=== PATIENT | male | born 1940 | race American Indian/Alaskan Native ===

== ENCOUNTER 2019-06-23 09:06 | Inpatient (IN) | payer MEDICARE ==
[2019-06-23] MEDS ORDERED: SOLU-Medrol IV ONE (10:06)
[2019-06-23] MEDS ORDERED: ATROVENT IH ONE (10:06)
[2019-06-23] MEDS ORDERED: PROVENTIL IH ONE (10:06)
[2019-06-23 10:21] LABS: Basophils # (Auto) 0.1 K/mm3 (0.0-0.1); Basophils % (Auto) 0.8 % (0.0-1.8); Eosinophils # (Auto) 0.1 K/mm3 (0.0-0.4); Eosinophils % (Auto) 1.2 % (0.0-4.3); Hematocrit 34.3 % (35.5-45.6); Hemoglobin 11.1 gm/dl (11.8-15.2); Lymphocytes # (Auto) 2.4 K/mm3 (1.2-5.4); Lymphocytes % (Auto) 21.1 % (13.4-35.0); Mean Corpuscular HGB Conc 32 % (32-34); Mean Corpuscular Volume 84 fl (84-94); Monocytes % (Auto) 8.9 % (0.0-7.3); Platelet Count 563 K/mm3 (140-440); Red Cell Distribution Width 16.5 % (13.2-15.2)
--- NOTE | 2019-06-23 10:23 | XRay Report ---
CHEST 1 VIEW INDICATION: Dyspnea. COMPARISON: None FINDINGS: Support devices: None. Heart: Borderline to mild cardiomegaly. Lungs/Pleura: The lungs are hyperinflated. Mild pulmonary venous congestion is identified. No consoli dation, large pleural effusion or pneumothorax. Additional findings: None. IMPRESSION: Hyperinflated lungs. Mild cardiomegaly and pulmonary venous congestion. Signer Name: Monster Bardales Jr, MD Signed: 06/23/2019 10:18 AM Workstation Name: [id number]
[2019-06-23 10:26] LABS: BUN/Creatinine Ratio 10; Blood Urea Nitrogen 13 mg/dL (9-20); Calcium 8.7 mg/dL (8.4-10.2); Hemolysis Index 2
--- NOTE | 2019-06-23 11:32 | Emergency Department Report ---
ED Shortness of Breath HPI - General Chief Complaint: Dyspnea/Respdistress Stated Complaint: CHEST PAIN Time Seen by Provider: 06/23/19 09:37 Source: patient, EMS Mode of arrival: Stretcher Limitations: No Limitations - History of Present Illness Initial Comments: 79-year-old male with a past history of obesity, previous stroke, diabetes, GERD, atrial fibrillation on Coumadin, hypertension, and COPD presents to the hospital with complaints of shortness of breath since last night. Patient states he's been wheezing a lot. He complains of a chronic dry cough for years that isn't any worse. He's been compliant with his medications. He denies chest pain, fever, leg swelling, calf tenderness, history of PEs or DVTs. Patient states he is recently diagnosed with COPD. He used to be a heavy smoker (2 packs per day) but quit in the s. He states he has noticed a lot of wheezing the last several days he does not have any bronchodilators at home for treatment. States that his cough and his wheezing had improved with albuterol 2.5 mg mg provided in route. She was discharged from [facility] by 1.5 weeks ago for CHF exacerbation. They decided to come to this hospital today because his quencher operator is Dr. Whittington - Related Data Home Medications Medication Instructions Recorded Confirmed Last Taken Amlodipine Besylate [Norvasc] 10 mg PO DAILY 12/09/14 06/23/19 06/23/19 Metformin HCl [Glucophage] 1,000 mg PO BID 12/09/14 06/23/19 06/23/19 PARoxetine HCl [PARoxetine] 40 mg PO DAILY 12/09/14 06/23/19 06/23/19 Aspirin [Aspirin BABY CHEW TAB] 1 tab PO DAILY 12/21/14 06/23/19 06/23/19 Furosemide [Lasix TAB] 40 mg PO QDAY 06/23/19 06/23/19 06/23/19 Metoprolol [Lopressor] 100 mg PO QDAY 06/23/19 06/23/19 06/23/19 PARoxetine HCl [PARoxetine] 40 mg PO QDAY 06/23/19 06/23/19 06/23/19 Potassium Chloride [K-Dur] 10 meq PO QDAY 06/23/19 06/23/19 06/23/19 Tamsulosin [Flomax] 0.4 mg PO QDAY 06/23/19 06/23/19 06/23/19 Warfarin Sodium [Coumadin] 5 mg PO QDAY 06/23/19 06/23/19 06/23/19 raNITIdine HCl [Zantac] 300 mg PO QDAY 06/23/19 06/23/19 06/23/19 Allergies Allergy/AdvReac Type Severity Reaction Status Date / Time Iodinated Contrast- Oral and Allergy Unknown Verified 06/23/19 09:23 IV Dye lisinopril [From Zestril] Allergy Swelling Verified 06/23/19 09:22 ED Review of Systems ROS: Stated complaint: CHEST PAIN Other details as noted in HPI Comment: All other systems reviewed and negative ED Past Medical Hx - Past Medical History Previous Medical History?: Yes Hx Hypertension: Yes Hx CVA: Yes (Poss TIA) Hx Heart Attack/AMI: No Hx Congestive Heart Failure: Yes Hx Diabetes: Yes Hx GERD: Yes Hx Liver Disease: No Hx Renal Disease: No Hx Sickle Cell Disease: No Hx Seizures: No Hx Asthma: No Hx COPD: Yes Hx HIV: No Additional medical history: Mood swing, Nerves, Small CVA - Surgical History Past Surgical History?: Yes Additional Surgical History: fistula/hemorrhoid - Social History Smoking Status: Former Smoker Substance Use Type: None - Medications Home Medications: Home Medications Medication Instructions Recorded Confirmed Last Taken Type Amlodipine Besylate [Norvasc] 10 mg PO DAILY 12/09/14 06/23/19 06/23/19 History Metformin HCl [Glucophage] 1,000 mg PO BID 12/09/14 06/23/19 06/23/19 History PARoxetine HCl [PARoxetine] 40 mg PO DAILY 12/09/14 06/23/19 06/23/19 History Aspirin [Aspirin BABY CHEW TAB] 1 tab PO DAILY 12/21/14 06/23/19 06/23/19 History Furosemide [Lasix TAB] 40 mg PO QDAY 06/23/19 06/23/19 06/23/19 History Metoprolol [Lopressor] 100 mg PO QDAY 06/23/19 06/23/19 06/23/19 History PARoxetine HCl [PARoxetine] 40 mg PO QDAY 06/23/19 06/23/19 06/23/19 History Potassium Chloride [K-Dur] 10 meq PO QDAY 06/23/19 06/23/19 06/23/19 History Tamsulosin [Flomax] 0.4 mg PO QDAY 06/23/19 06/23/19 06/23/19 History Warfarin Sodium [Coumadin] 5 mg PO QDAY 06/23/19 06/23/19 06/23/19 History raNITIdine HCl [Zantac] 300 mg PO QDAY 06/23/19 06/23/19 06/23/19 History ED Physical Exam - General Limitations: No Limitations ED Course Vital Signs 06/23/19 06/23/19 06/23/19 09:14 09:15 09:20 Temperature 98.7 F Pulse Rate 66 Pulse Rate [ Anterior Bilateral Throughout] Respiratory 19 Rate Respiratory Rate [Anterior Bilateral Throughout] Blood Pressure 140/62 O2 Sat by Pulse 93 93 92 Oximetry 06/23/19 06/23/19 06/23/19 09:30 09:46 10:00 Temperature Pulse Rate 67 72 68 Pulse Rate [ Anterior Bilateral Throughout] Respiratory 13 23 14 Rate Respiratory Rate [Anterior Bilateral Throughout] Blood Pressure 136/68 136/68 140/62 O2 Sat by Pulse 97 97 100 Oximetry 06/23/19 06/23/19 06/23/19 10:16 10:30 10:42 Temperature Pulse Rate 69 68 Pulse Rate [ 71 Anterior Bilateral Throughout] Respiratory 19 26 H Rate Respiratory 20 Rate [Anterior Bilateral Throughout] Blood Pressure 140/62 134/68 O2 Sat by Pulse 98 96 Oximetry 06/23/19 06/23/19 06/23/19 10:46 11:00 11:15 Temperature Pulse Rate 71 65 77 Pulse Rate [ Anterior Bilateral Throughout] Respiratory 20 23 24 Rate Respiratory Rate [Anterior Bilateral Throughout] Blood Pressure 138/66 129/67 127/71 O2 Sat by Pulse 89 98 95 Oximetry 06/23/19 06/23/19 06/23/19 11:30 11:45 12:00 Temperature Pulse Rate 82 67 74 Pulse Rate [ Anterior Bilateral Throughout] Respiratory 17 22 19 Rate Respiratory Rate [Anterior Bilateral Throughout] Blood Pressure 113/59 120/59 124/59 O2 Sat by Pulse 94 96 96 Oximetry 06/23/19 06/23/19 06/23/19 12:16 12:30 12:45 Temperature Pulse Rate 77 79 74 Pulse Rate [ Anterior Bilateral Throughout] Respiratory 15 13 22 Rate Respiratory Rate [Anterior Bilateral Throughout] Blood Pressure 149/76 141/63 164/79 O2 Sat by Pulse 97 96 91 Oximetry ED Medical Decision Making - Lab Data Result diagrams: 06/23/19 09:43 06/23/19 09:43 Lab Results 06/23/19 06/23/19 06/23/19 Range/Units 09:43 09:43 09:43 WBC 11.2 H (4.5-11.0) K/mm3 RBC 4.10 (3.65-5.03) M/mm3 Hgb 11.1 L (11.8-15.2) gm/dl Hct 34.3 L (35.5-45.6) % MCV 84 (84-94) fl MCH 27 L (28-32) pg MCHC 32 (32-34) % RDW 16.5 H (13.2-15.2) % Plt Count 563 H (140-440) K/mm3 Lymph % (Auto) 21.1 (13.4-35.0) % [place] % (Auto) 8.9 H (0.0-7.3) % Eos % (Auto) 1.2 (0.0-4.3) % Baso % (Auto) 0.8 (0.0-1.8) % Lymph # 2.4 (1.2-5.4) K/mm3 [place] # 1.0 H (0.0-0.8) K/mm3 Eos # 0.1 (0.0-0.4) K/mm3 Baso # 0.1 (0.0-0.1) K/mm3 Seg Neutrophils % 68.0 (40.0-70.0) % Seg Neutrophils # 7.6 (1.8-7.7) K/mm3 PT (12.2-14.9) Sec. INR (0.87-1.13) APTT (24.2-36.6) Sec. Sodium 140 (137-145) mmol/L Potassium 4.2 (3.6-5.0) mmol/L Chloride 105.0 (98-107) mmol/L Carbon Dioxide 24 (22-30) mmol/L Anion Gap 15 mmol/L BUN 13 (9-20) mg/dL Creatinine 1.3 (0.8-1.5) mg/dL Estimated GFR > 60 ml/min BUN/Creatinine Ratio 10 % Glucose 112 H (75-100) mg/dL Calcium 8.7 (8.4-10.2) mg/dL Troponin T < 0.010 (0.00-0.029) ng/mL NT-Pro-B Natriuret Pep 1680 H (0-900) pg/mL 06/23/19 Range/Units 12:03 WBC (4.5-11.0) K/mm3 RBC (3.65-5.03) M/mm3 Hgb (11.8-15.2) gm/dl Hct (35.5-45.6) % MCV (84-94) fl MCH (28-32) pg MCHC (32-34) % RDW (13.2-15.2) % Plt Count (140-440) K/mm3 Lymph % (Auto) (13.4-35.0) % [place] % (Auto) (0.0-7.3) % Eos % (Auto) (0.0-4.3) % Baso % (Auto) (0.0-1.8) % Lymph # (1.2-5.4) K/mm3 [place] # (0.0-0.8) K/mm3 Eos # (0.0-0.4) K/mm3 Baso # (0.0-0.1) K/mm3 Seg Neutrophils % (40.0-70.0) % Seg Neutrophils # (1.8-7.7) K/mm3 PT 35.8 H (12.2-14.9) Sec. INR 3.66 H (0.87-1.13) APTT 56.4 H (24.2-36.6) Sec. Sodium (137-145) mmol/L Potassium (3.6-5.0) mmol/L Chloride (98-107) mmol/L Carbon Dioxide (22-30) mmol/L Anion Gap mmol/L BUN (9-20) mg/dL Creatinine (0.8-1.5) mg/dL Estimated GFR ml/min BUN/Creatinine Ratio % Glucose (75-100) mg/dL Calcium (8.4-10.2) mg/dL Troponin T (0.00-0.029) ng/mL NT-Pro-B Natriuret Pep (0-900) pg/mL - EKG Data -: EKG Interpreted by Me (afib rate 63) EKG shows normal: ST-T waves (no stemi) - EKG Data When compared to previous EKG there are: previous EKG unavailable - Radiology Data Radiology results: report reviewed CHEST 1 VIEW INDICATION: Dyspnea. COMPARISON: None FINDINGS: Support devices: None. Heart: Borderline to mild cardiomegaly. Lungs/Pleura: The lungs are hyperinflated. Mild pulmonary venous congestion is identified. No consolidation, large pleural effusion or pneumothorax. Additional findings: None. IMPRESSION: Hyperinflated lungs. Mild cardiomegaly and pulmonary venous congestion. - Medical Decision Making Patient having a combination of COPD and CHF exacerbation. She reported feeling better with nebs and steroids. I will he started eating he began to get more s hort of breath and O2 sat dropped to 88-89% on room air. I feel like the patient needs more time in treatment that can be providing any EGD. He will be admitted to the hospital for further treatment of COPD and CHF exacerbation. IV Lasix provided. - Differential Diagnosis copd, chf, pneumonia, pe, afib Critical Care Time: No Critical care attestation.: If time is entered above; I have spent that time in minutes in the direct care of this critically ill patient, excluding procedure time. ED Disposition Clinical Impression: COPD exacerbation, CHF exacerbation, Chronic atrial fibrillation, Supratherapeutic INR Disposition: OP ADMIT IP TO THIS HOSP Is pt being admited?: Yes Condition: Stable Time of Disposition: 13:50 (Dr Gordillo/hosp)
[2019-06-23 12:48] LABS: INR 3.66 (0.87-1.13)
[2019-06-23 12:49] LABS: Partial Thromboplastin Time 56.4 Sec. (24.2-36.6)
[2019-06-23] MEDS ORDERED: LASIX IV ONE ×2 (13:42→13:46)
--- NOTE | 2019-06-23 15:23 | History and Physical Report ---
History of Present Illness Chief complaint: I cant breathe History of present illness: 79 YO Male with HTN, CVA, CHF, DM, GERD, COPD, Atrial Fib on Therapeutic Anticoagulation, Obesity, Obesity Hypoventilation syndrome presents to ED for evaluation. Pt states that he has experienced shortness of breath over the past 3 days with worsening symptoms over the past 12 hours. Pt acknowledges increased coughing, with increased production of clear sputum, increased nebulizer usage without relief, and subsequent exhaustion of his home nebulizer supply, Orthopnea/PND, Decreased exercise tolerance, leg swelling. Pt acknowledges dietary noncompliance, and subjective weight gain. Pt denies medication noncompliance. EMS notified, and upon arrival the patient was found to be in distress and transported to [facility]. Pt seen and evaluated in ED and found to have pulse oximetry of 88% on room air and symptoms symptoms consistent with Acute Hypoxemic Respiratory Failure, COPD Exacerbation, CHF Decompensation. Pt admitted to telemetry and initiated on COPD protocol, as well as CHF protocol. No prior admission for review. All listed medication reconciled at time of admission. Past History Past Medical History: atrial fib, COPD, diabetes, GERD, heart failure, hypertension Past Surgical History: bowel surgery Social history: , lives with family. denies: smoking, alcohol abuse, prescription drug abuse Family history: diabetes, hypertension Medications and Allergies Allergies Allergy/AdvReac Type Severity Reaction Status Date / Time Iodinated Contrast- Oral and Allergy Unknown Verified 06/23/19 09:23 IV Dye lisinopril [From Zestril] Allergy Swelling Verified 06/23/19 09:22 Home Medications Medication Instructions Recorded Confirmed Last Taken Type Amlodipine Besylate [Norvasc] 10 mg PO DAILY 12/09/14 06/23/19 06/23/19 History Metformin HCl [Glucophage] 1,000 mg PO BID 12/09/14 06/23/19 06/23/19 History PARoxetine HCl [PARoxetine] 40 mg PO DAILY 12/09/14 06/23/19 06/23/19 History Aspirin [Aspirin BABY CHEW TAB] 1 tab PO DAILY 12/21/14 06/23/19 06/23/19 History Furosemide [Lasix TAB] 40 mg PO QDAY 06/23/19 06/23/19 06/23/19 History Metoprolol [Lopressor] 100 mg PO QDAY 06/23/19 06/23/19 06/23/19 History PARoxetine HCl [PARoxetine] 40 mg PO QDAY 06/23/19 06/23/19 06/23/19 History Potassium Chloride [K-Dur] 10 meq PO QDAY 06/23/19 06/23/19 06/23/19 History Tamsulosin [Flomax] 0.4 mg PO QDAY 06/23/19 06/23/19 06/23/19 History Warfarin Sodium [Coumadin] 5 mg PO QDAY 06/23/19 06/23/19 06/23/19 History raNITIdine HCl [Zantac] 300 mg PO QDAY 06/23/19 06/23/19 06/23/19 History Review of Systems Constitutional: weight gain, no weight loss, no fever, no chills Ears, nose, mouth and throat: no ear pain, no tinnitis, no nose pain Cardiovascular: orthopnea, shortness of breath, dyspnea on exertion, paroxysmal nocturnal dyspnea, leg edema, decreased exercise tolerance, no chest pain Respiratory: cough, cough with sputum, excessive sputum, shortness of breath, dyspnea on exertion, wheezing Gastrointestinal: no abdominal pain, no vomiting, no constipation Genitourinary Male: no dysuria, no flank pain, no urinary hesitancy Rectal: no pain, no incontinence Musculoskeletal: no neck stiffness, no neck pain, no arm numbness/tingling, no shooting leg pain Integumentary: no rash, no redness, no wounds Neurological: no head injury, no paralysis, no parathesias, no tingling Psychiatric: no anxiety, no change in sleep habits, no hypersomnia, no suicidal ideation Endocrine: no cold intolerance, no polyphagia, no polyuria Hematologic/Lymphatic: no easy bruising, no easy bleeding Allergic/Immunologic: no urticaria, no allergic rhinitis, no wheezing Exam - Constitutional Vitals: Temp Pulse Resp BP Pulse Ox 98.7 F 77 11 L 138/57 91 06/23/19 09:20 06/23/19 14:00 06/23/19 14:00 06/23/19 14:00 06/23/19 14:00 General appearance: Present: mild distress, obese - EENT Eyes: Present: PERRL ENT: hearing intact, clear oral mucosa - Neck Neck: Present: supple, normal ROM - Respiratory Respiratory effort: normal Respiratory: bilateral: diminished, rhonchi - Cardiovascular Heart Sounds: Present: S1 & S2. Absent: rub, click - Extremities Extremities: pulses symmetrical Extremity abnormal: edema Peripheral Pulses: within normal limits - Abdominal General gastrointestinal: Present: soft, non-tender, non-distended, normal bowel sounds Male genitourinary: Present: normal - Integumentary Integumentary: Present: clear, warm, dry - Musculoskeletal Musculoskeletal: gait normal, strength equal bilaterally - Psychiatric Psychiatric: appropriate mood/affect, intact judgment & insight - Neurologic Neurologic: CNII-XII intact, moves all extremities Results - Labs CBC & Chem 7: 06/23/19 09:43 06/23/19 09:43 Labs: Abnormal lab results 06/23/19 06/23/19 06/23/19 Range/Units 09:43 09:43 09:43 WBC 11.2 H (4.5-11.0) K/mm3 Hgb 11.1 L (11.8-15.2) gm/dl Hct 34.3 L (35.5-45.6) % MCH 27 L (28-32) pg RDW 16.5 H (13.2-15.2) % Plt Count 563 H (140-440) K/mm3 [place] % (Auto) 8.9 H (0.0-7.3) % [place] # 1.0 H (0.0-0.8) K/mm3 PT (12.2-14.9) Sec. INR (0.87-1.13) APTT (24.2-36.6) Sec. Glucose 112 H (75-100) mg/dL NT-Pro-B Natriuret Pep 1680 H (0-900) pg/mL 06/23/19 Range/Units 12:03 WBC (4.5-11.0) K/mm3 Hgb (11.8-15.2) gm/dl Hct (35.5-45.6) % MCH (28-32) pg RDW (13.2-15.2) % Plt Count (140-440) K/mm3 [place] % (Auto) (0.0-7.3) % [place] # (0.0-0.8) K/mm3 PT 35.8 H (12.2-14.9) Sec. INR 3.66 H (0.87-1.13) APTT 56.4 H (24.2-36.6) Sec. Glucose (75-100) mg/dL NT-Pro-B Natriuret Pep (0-900) pg/mL Assessment and Plan - Patient Problems (1) Acute respiratory failure Current Visit: Yes Status: Acute Qualifiers: Respiratory failure complication: hypoxia Qualified Code(s): J96.01 - Acute respiratory failure with hypoxia Plan to address problem: Supplemental oxygen, nebulizer therapy, chest x ray, pulse oximetry, NIPPV as clinically indicated, (2) Obesity hypoventilation syndrome Current Visit: Yes Status: Acute Plan to address problem: Supplemental oxygen, nebulizer therapy, NIPPV as clinically indicated, increased physical activity at discharge, balanced diet. (3) CHF exacerbation Current Visit: Yes Status: Acute Qualifiers: Heart failure type: systolic Qualified Code(s): I50.23 - Acute on chronic systolic (congestive) heart failure Plan to address problem: Strict I/O, daily weight, diuresis, afterload reduction, supplemental oxygen, pulse oximetry, blood pressure control, thyroid panel, magnesium level. (4) COPD exacerbation Current Visit: Yes Status: Acute Plan to address problem: Supplemental oxygen, nebulizer therapy, steroid therapy, pulse oximetry, (5) Chronic atrial fibrillation Current Visit: Yes Status: Acute Plan to address problem: Continue therapeutic anticoagulation, INR, telemetry monitoring, rate control, (6) GERD (gastroesophageal reflux disease) Current Visit: No Status: Acute Qualifiers: Esophagitis presence: without esophagitis Qualified Code(s): K21.9 - Gastro-esophageal reflux disease without esophagitis Plan to address problem: PPI therapy, (7) HTN (hypertension) Current Visit: Yes Status: Acute Qualifiers: Hypertension type: essential hypertension Qualified Code(s): I10 - Essential (primary) hypertension Plan to address problem: Monitor BP q shift, supportive care. (8) Diabetes Current Visit: Yes Status: Acute Plan to address problem: ADA diet, insulin, accu check, hypoglycemia protocol (9) DVT prophylaxis Current Visit: Yes Status: Acute Plan to address problem: SCD to BLE while in bed, therapeutic anticoagulation.
[2019-06-23] MEDS ORDERED: TYLENOL PO PRN (15:32)
[2019-06-23] MEDS ORDERED: SODIUM CHLORIDE FLUSH SYRINGE 10 ML IV PRN (15:32)
[2019-06-23] MEDS ORDERED: ZOFRAN IV PRN (15:32)
[2019-06-23 18:08] LABS: Free T4 (Free Thyroxine) 1.11 ng/dL (0.76-1.46)
[2019-06-23] MEDS: SODIUM CHLORIDE FLUSH SYRINGE 10 ML IV SCH (23:50)
[2019-06-24 06:07] LABS: INR 4.68 (0.87-1.13)
[2019-06-24] MEDS: FLOMAX PO SCH (09:24)
[2019-06-24] MEDS: PEPCID PO SCH (09:24)
[2019-06-24] MEDS: K-DUR PO SCH (09:24)
[2019-06-24] MEDS: NORVASC PO SCH (09:24)
[2019-06-24] MEDS: BABY ASPIRIN PO SCH (09:24)
[2019-06-24] MEDS: PAXIL PO SCH (09:25)
[2019-06-24] MEDS: SODIUM CHLORIDE FLUSH SYRINGE 10 ML IV SCH ×2 (09:25→21:28)
[2019-06-24] MEDS ORDERED: NON-FORMULARY (Ranitidine Hcl [Zantac] 300 MG) PO SCH (10:00)
[2019-06-24] MEDS ORDERED: LOPRESSOR PO SCH (10:00)
[2019-06-24] MEDS ORDERED: NON-FORMULARY (Amlodipine Besylate [Norvasc] 10 MG) PO SCH (10:00)
[2019-06-24] MEDS ORDERED: NON-FORMULARY (Paroxetine Hcl [Paroxetine] 40 MG) PO SCH (10:00)
[2019-06-24] MEDS ORDERED: COUMADIN PO SCH (10:00)
--- NOTE | 2019-06-24 11:31 | Consultation ---
History of Present Illness Consult date: 06/24/19 Requesting physician: LAMAR CAMPOS Consult reason: congestive heart failure History of present illness: The pt is a 79 YO male with a past medical history of atrial fibrillation, anticoagulated on Coumadin, CVA, HTN, DM, sleep apnea. He is currently followed in our office by Dr. Gonzalez (has also seen Dr. Miller in the past). He presented with c/o progressively worsening SOB and orthopnea for the past several weeks. He also reports some mild BLE edema. He reports he was hospitalized at [facility] 2 weeks ago for the same symptoms and was told that he has heart failure, which is a new diagnosis for him. Per [facility] discharge summary from 05/20/2019, pt received treatment for HFpEF, acute respiratory failure. Pt denies any chest pain, palpitations, n/v, diaphoresis, dizziness or syncope. Pt reports compliance with home medications, which includes lasix 40mg daily, lopressor, norvasc, warfarin. Admission INR 3.66. Pt does admit that he has been eating a lot of sodium recently - hot dogs and sausage for breakfast. Echo done at [facility] 05/16/2019 showed EF 60%, impaired relaxation, mild LVH, trace AI and MR. Past History Past Medical History: atrial fib, diabetes, GERD, heart failure, hypertension Past Surgical History: bowel surgery Social history: , lives with family. denies: smoking, alcohol abuse, prescription drug abuse Family history: diabetes, hypertension Medications and Allergies Allergies Allergy/AdvReac Type Severity Reaction Status Date / Time Iodinated Contrast- Oral and Allergy Unknown Verified 06/23/19 09:23 IV Dye lisinopril [From Zestril] Allergy Swelling Verified 06/23/19 09:22 Home Medications Medication Instructions Recorded Confirmed Last Taken Type Amlodipine Besylate [Norvasc] 10 mg PO DAILY 12/09/14 06/23/19 06/23/19 History Metformin HCl [Glucophage] 1,000 mg PO BID 12/09/14 06/23/19 06/23/19 History PARoxetine HCl [PARoxetine] 40 mg PO DAILY 12/09/14 06/23/19 06/23/19 History Aspirin [Aspirin BABY CHEW TAB] 1 tab PO DAILY 12/21/14 06/23/19 06/23/19 History Furosemide [Lasix TAB] 40 mg PO QDAY 06/23/19 06/23/19 06/23/19 History Metoprolol [Lopressor] 100 mg PO QDAY 06/23/19 06/23/19 06/23/19 History PARoxetine HCl [PARoxetine] 40 mg PO QDAY 06/23/19 06/23/19 06/23/19 History Potassium Chloride [K-Dur] 10 meq PO QDAY 06/23/19 06/23/19 06/23/19 History Tamsulosin [Flomax] 0.4 mg PO QDAY 06/23/19 06/23/19 06/23/19 History Warfarin Sodium [Coumadin] 5 mg PO QDAY 06/23/19 06/23/19 06/23/19 History raNITIdine HCl [Zantac] 300 mg PO QDAY 06/23/19 06/23/19 06/23/19 History Active Meds: Active Medications Acetaminophen (Tylenol) 650 mg PO Q4H PRN PRN Reason: Pain MILD(1-3)/Fever >100.5/STEWART Albuterol (Proventil) 2.5 mg IH Q4HRT PRN PRN Reason: Shortness Of Breath Amlodipine Besylate (Norvasc) 10 mg PO DAILY [facility] Last Admin: 06/24/19 09:24 Dose: 10 mg Documented by: Aspirin (Baby Aspirin) 81 mg PO DAILY [facility] Last Admin: 06/24/19 09:24 Dose: 81 mg Documented by: Famotidine (Pepcid) 20 mg PO QDAY [facility] Last Admin: 06/24/19 09:24 Dose: 20 mg Documented by: Metoprolol Tartrate (Lopressor) 100 mg PO QDAY [facility] Last Admin: 06/24/19 09:24 Dose: 100 mg Documented by: Ondansetron HCl (Zofran) 4 mg IV Q8H PRN PRN Reason: Nausea And Vomiting Paroxetine HCl (Paxil) 40 mg PO DAILY [facility] Last Admin: 06/24/19 09:25 Dose: 40 mg Documented by: Pneumococcal Polyvalent Vaccine (Pneumovax 23) 0.5 ml IM .ONCE ONE Stop: 06/24/19 12:01 Potassium Chloride (K-Dur) 10 meq PO QDAY [facility] Last Admin: 06/24/19 09:24 Dose: 10 meq Documented by: Sodium Chloride (Sodium Chloride Flush Syringe 10 Ml) 10 ml IV BID [facility] Last Admin: 06/24/19 09:25 Dose: 10 ml Documented by: Sodium Chloride (Sodium Chloride Flush Syringe 10 Ml) 10 ml IV PRN PRN PRN Reason: LINE FLUSH Tamsulosin HCl (Flomax) 0.4 mg PO QDAY [facility] Last Admin: 06/24/19 09:24 Dose: 0.4 mg Documented by: Review of Systems Constitutional: weight gain, no fever, no chills, no sweats Ears, nose, mouth and throat: no nose pain, no sinus pressure, no sinus pain Cardiovascular: orthopnea, edema, shortness of breath, dyspnea on exertion, paroxysmal nocturnal dyspnea, leg edema, decreased exercise tolerance, no chest pain, no palpitations, no rapid/irregular heart beat, no syncope, no lightheadedness Respiratory: shortness of breath, dyspnea on exertion, no cough, no congestion, no wheezing, no pain on inspiration Gastrointestinal: no abdominal pain, no nausea, no vomiting, no diarrhea, no constipation, no change in bowel habits Genitourinary Male: no dysuria, no hematuria, no flank pain, no discharge, no urinary frequency, no urinary hesitancy Musculoskeletal: no neck stiffness, no neck pain, no shooting arm pain, no arm numbness/tingling, no low back pain Integumentary: no rash, no pruritis, no redness, no sores, no wounds Neurological: no head injury, no paralysis, no weakness, no parathesias, no numbness, no tingling, no seizures, no syncope Psychiatric: no anxiety Endocrine: no cold intolerance, no heat intolerance Hematologic/Lymphatic: no easy bruising, no easy bleeding Allergic/Immunologic: no urticaria, no wheezing Physical Examination Vital Signs Pulse Ox 93 06/23/19 09:14 General appearance: no acute distress HEENT: Positive: PERRL, Normocephaly, Mucus Membranes Moist Neck: Positive: neck supple, trachea midline Cardiac: Positive: irregularly irregular, S1/S2 Lungs: Positive: Decreased Breath Sounds Neuro: Positive: Grossly Intact Abdomen: Positive: Firm (slightly firm). Negative: Tender Skin: Negative: Rash Musculoskeletal: No Pain Extremities: Present: edema (trace BLE) Results 06/23/19 09:43 06/23/19 09:43 Coagulation 06/23/19 06/24/19 Range/Units 12:03 Unknown PT 35.8 H 43.5 H (12.2-14.9) Sec. INR 3.66 H 4.68 H (0.87-1.13) APTT 56.4 H (24.2-36.6) Sec. - Imaging and Cardiology Echo: report reviewed ([facility] 05/16/2019 showed EF 60%, impaired relaxation, mild LVH, trace AI and MR. ) EKG: report reviewed, image reviewed EKG interpretations - Telemetry EKG Rhythm: Atrial Fibrillation - EKG Supraventricular dysrhythmia: atrial fibrillation Assessment and Plan DDimer elevated although PE/DVT is unlikely in setting of supratherapeutic INR, pt denies any cp or BLE pain or prolonged immobility. Will defer further eval per primary. Coumadin held as INR is 4.68 this morning. Pt denies any abnormal bruising or bleeding. Cont to trend INR and monitor CBC. Cont home cardiac regimen and cont IV diuresis. The patient has been seen in conjunction with Dr. Green who agrees with the assessment and plan of care. - Patient Problems (1) Acute heart failure with preserved ejection fraction Current Visit: Yes Status: Acute (2) Accelerated hypertension Current Visit: Yes Status: Acute (3) Chronic atrial fibrillation Current Visit: Yes Status: Chronic (4) Anticoagulated on Coumadin Current Visit: Yes Status: Chronic (5) Supratherapeutic INR Current Visit: Yes Status: Acute (6) Diabetes Current Visit: Yes Status: Chronic (7) Sleep apnea Current Visit: Yes Status: Chronic (8) Obesity Current Visit: Yes Status: Chronic (9) Anemia Current Visit: Yes Status: Acute
[2019-06-24] MEDS ORDERED: PNEUMOVAX 23 IM ONE (12:00)
[2019-06-24] MEDS: LASIX IV SCH ×2 (12:49→17:15)
[2019-06-24] MEDS: PROVENTIL IH PRN (16:07)
--- NOTE | 2019-06-24 16:39 | Progress Note ---
Assessment and Plan Assessment and plan: Acute respiratory failure Supplemental oxygen, nebulizer therapy, chest x ray, pulse oximetry, NIPPV as clinically indicated, Elevated d-dimer--check CTA chest Obesity hypoventilation syndrome Supplemental oxygen, nebulizer therapy, NIPPV as clinically indicated, increased physical activity at discharge, balanced diet. Acute HFpEF Strict I/O, daily weight, diuresis, afterload reduction, supplemental oxygen, pulse oximetry, blood pressure control, thyroid panel, magnesium level. COPD exacerbation Supplemental oxygen, nebulizer therapy, steroid therapy, pulse oximetry, Chronic atrial fibrillation Continue therapeutic anticoagulation, INR, telemetry monitoring, rate control, Anticoagulated on Coumadin/Supratherapeutic INR GERD (gastroesophageal reflux disease) PPI therapy, Accelerated hypertension Monitor BP q shift, supportive care. Diabetes ADA diet, insulin, accu check, hypoglycemia protocol History Interval history: No new issues overnight Hospitalist Physical - Constitutional Vitals: Temp Pulse Resp BP Pulse Ox 97.6 F 71 20 113/68 95 06/24/19 07:34 06/24/19 16:11 06/24/19 16:11 06/24/19 09:24 06/24/19 10:00 General appearance: Present: no acute distress - EENT Eyes: Present: PERRL, EOM intact ENT: hearing intact, clear oral mucosa, dentition normal - Neck Neck: Present: supple, normal ROM - Respiratory Respiratory effort: normal Respiratory: bilateral: CTA - Cardiovascular Rhythm: regular Heart Sounds: Present: S1 & S2. Absent: gallop, rub - Extremities Extremities: no ischemia, No edema, Full ROM - Abdominal General gastrointestinal: soft, non-tender, non-distended, normal bowel sounds - Integumentary Integumentary: Present: clear, warm, dry - Neurologic Neurologic: CNII-XII intact, moves all extremities Results - Labs CBC & Chem 7: 06/23/19 09:43 06/23/19 09:43 Labs: Laboratory Last Values WBC 11.2 K/mm3 (4.5-11.0) H 06/23/19 09:43 RBC 4.10 M/mm3 (3.65-5.03) 06/23/19 09:43 Hgb 11.1 gm/dl (11.8-15.2) L 06/23/19 09:43 Hct 34.3 % (35.5-45.6) L 06/23/19 09:43 MCV 84 fl (84-94) 06/23/19 09:43 MCH 27 pg (28-32) L 06/23/19 09:43 MCHC 32 % (32-34) 06/23/19 09:43 RDW 16.5 % (13.2-15.2) H 06/23/19 09:43 Plt Count 563 K/mm3 (140-440) H 06/23/19 09:43 Lymph % (Auto) 21.1 % (13.4-35.0) 06/23/19 09:43 [place] % (Auto) 8.9 % (0.0-7.3) H 06/23/19 09:43 Eos % (Auto) 1.2 % (0.0-4.3) 06/23/19 09:43 Baso % (Auto) 0.8 % (0.0-1.8) 06/23/19 09:43 Lymph # 2.4 K/mm3 (1.2-5.4) 06/23/19 09:43 [place] # 1.0 K/mm3 (0.0-0.8) H 06/23/19 09:43 Eos # 0.1 K/mm3 (0.0-0.4) 06/23/19 09:43 Baso # 0.1 K/mm3 (0.0-0.1) 06/23/19 09:43 Seg Neutrophils % 68.0 % (40.0-70.0) 06/23/19 09:43 Seg Neutrophils # 7.6 K/mm3 (1.8-7.7) 06/23/19 09:43 PT 43.5 Sec. (12.2-14.9) H 06/24/19 Unknown INR 4.68 (0.87-1.13) H 06/24/19 Unknown APTT 56.4 Sec. (24.2-36.6) H 06/23/19 12:03 1238.14 ng/mlDDU (0-234) H 06/23/19 16:10 Sodium 140 mmol/L (137-145) 06/23/19 09:43 Potassium 4.2 mmol/L (3.6-5.0) 06/23/19 09:43 Chloride 105.0 mmol/L (98-107) 06/23/19 09:43 Carbon Dioxide 24 mmol/L (22-30) 06/23/19 09:43 15 mmol/L 06/23/19 09:43 BUN 13 mg/dL (9-20) 06/23/19 09:43 1.3 mg/dL (0.8-1.5) 06/23/19 09:43 Estimated GFR > 60 ml/min 06/23/19 09:43 10 % 06/23/19 09:43 Glucose 112 mg/dL (75-100) H 06/23/19 09:43 Calcium 8.7 mg/dL (8.4-10.2) 06/23/19 09:43 Magnesium 2.00 mg/dL (1.7-2.3) 06/23/19 16:10 < 0.010 ng/mL (0.00-0.029) 06/23/19 09:43 NT-Pro-B Natriuret Pep 1680 pg/mL (0-900) H 06/23/19 09:43 TSH 0.827 mlU/mL (0.270-4.200) 06/23/19 16:02 Free T4 1.11 ng/dL (0.76-1.46) 06/23/19 16:02 Active Medications - Current Medications Current Medications: Generic Name Dose Route Start Last Admin Trade Name Freq PRN Reason Stop Dose Admin Acetaminophen 650 mg 06/23/19 15:32 Tylenol PO Q4H PRN Pain MILD(1-3)/Fever >100.5/ST[facility] Albuterol 2.5 mg 06/23/19 15:32 06/24/19 16:07 Proventil IH 2.5 mg Q4HRT PRN Administration Shortness Of Breath Amlodipine Besylate 10 mg 06/24/19 10:00 06/24/19 09:24 Norvasc PO 10 mg DAILY [facility] Administration Aspirin 81 mg 06/24/19 10:00 06/24/19 09:24 Baby Aspirin PO 81 mg DAILY [facility] Administration Famotidine 20 mg 06/24/19 10:00 06/24/19 09:24 Pepcid PO 20 mg QDAY [facility] Administration Furosemide 40 mg 06/24/19 12:00 06/24/19 12:49 Lasix IV 40 mg 0600,1800 [facility] Administration Metoprolol Succinate 100 mg 06/25/19 10:00 Toprol Xl PO QDAY [facility] Ondansetron HCl 4 mg 06/23/19 15:32 Zofran IV Q8H PRN Nausea And Vomiting Paroxetine HCl 40 mg 06/24/19 10:00 06/24/19 09:25 Paxil PO 40 mg DAILY [facility] Administration Potassium Chloride 10 meq 06/24/19 10:00 06/24/19 09:24 K-Dur PO 10 meq QDAY [facility] Administration Sodium Chloride 10 ml 06/23/19 22:00 06/24/19 09:25 Sodium Chloride Flush Syringe 10 Ml IV 10 ml BID [facility] Administration Sodium Chloride 10 ml 06/23/19 15:32 Sodium Chloride Flush Syringe 10 Ml IV PRN PRN LINE FLUSH Tamsulosin HCl 0.4 mg 06/24/19 10:00 06/24/19 09:24 Flomax PO 0.4 mg QDAY [facility] Administration
[2019-06-25] MEDS: PROVENTIL IH PRN (00:18)
[2019-06-25 05:44] LABS: Hematocrit 33.1 % (35.5-45.6); Hemoglobin 10.5 gm/dl (11.8-15.2); Mean Corpuscular HGB Conc 32 % (32-34); Mean Corpuscular Volume 84 fl (84-94); Platelet Count 537 K/mm3 (140-440); Red Blood Count 3.92 M/mm3 (3.65-5.03); Red Cell Distribution Width 16.5 % (13.2-15.2)
[2019-06-25 05:54] LABS: INR 4.9 (0.87-1.13)
[2019-06-25] MEDS: LASIX IV SCH ×2 (05:55→20:18)
[2019-06-25 06:03] LABS: BUN/Creatinine Ratio 18; Blood Urea Nitrogen 21 mg/dL (9-20); Calcium 8.4 mg/dL (8.4-10.2); Hemolysis Index 0
[2019-06-25] MEDS: NORVASC PO SCH (09:31)
[2019-06-25] MEDS: TOPROL XL PO SCH (09:32)
[2019-06-25] MEDS: PAXIL PO SCH (09:32)
[2019-06-25] MEDS: PEPCID PO SCH (09:32)
[2019-06-25] MEDS: K-DUR PO SCH (09:32)
[2019-06-25] MEDS: BABY ASPIRIN PO SCH (09:33)
[2019-06-25] MEDS: FLOMAX PO SCH (09:35)
[2019-06-25] MEDS: SODIUM CHLORIDE FLUSH SYRINGE 10 ML IV SCH ×2 (09:35→22:26)
--- NOTE | 2019-06-25 10:27 | Progress Note ---
Assessment and Plan DDimer elevated although PE/DVT is unlikely in setting of supratherapeutic INR, pt denies any cp or BLE pain or prolonged immobility. Will defer further eval per primary. Coumadin held as INR is 4.90 this morning. Pt denies any abnormal bruising or bleeding. Cont to trend INR and monitor CBC. Cont home cardiac regimen and cont IV diuresis. The patient has been seen in conjunction with Dr. Green who agrees with the assessment and plan of care. - Patient Problems (1) Acute heart failure with preserved ejection fraction Current Visit: Yes Status: Acute (2) Accelerated hypertension Current Visit: Yes Status: Acute (3) Chronic atrial fibrillation Current Visit: Yes Status: Chronic (4) Anticoagulated on Coumadin Current Visit: Yes Status: Chronic (5) Supratherapeutic INR Current Visit: Yes Status: Acute (6) Diabetes Current Visit: Yes Status: Chronic (7) Sleep apnea Current Visit: Yes Status: Chronic (8) Obesity Current Visit: Yes Status: Chronic (9) Anemia Current Visit: Yes Status: Acute Subjective Date of service: 06/25/19 Principal diagnosis: hf Interval history: pt sitting up in chair, states he is feeling better today, had some orthopnea overnight. in AFib with HR 90-100s. Objective Last Vital Signs Temp 98.3 F 06/25/19 08:13 Pulse 90 06/25/19 09:32 Resp 18 06/25/19 08:13 BP 142/58 06/25/19 09:32 Pulse Ox 96 06/25/19 08:13 - Physical Examination General: No Apparent Distress HEENT: Positive: PERRL, Normocephaly, Mucus Membranes Moist Neck: Positive: neck supple, trachea midline Cardiac: Positive: irregularly irregular, S1/S2 Lungs: Positive: Decreased Breath Sounds Neuro: Positive: Grossly Intact Abdomen: Positive: Firm (slightly firm). Negative: Tender Skin: Negative: Rash Musculoskeletal: No Pain Extremities: Present: edema (trace BLE) - Labs and Meds Coagulation 06/25/19 Range/Units 04:54 PT 45.1 H (12.2-14.9) Sec. INR 4.90 H (0.87-1.13) CBC 06/25/19 Range/Units 04:54 WBC 19.4 H (4.5-11.0) K/mm3 RBC 3.92 (3.65-5.03) M/mm3 Hgb 10.5 L (11.8-15.2) gm/dl Hct 33.1 L (35.5-45.6) % Plt Count 537 H (140-440) K/mm3 Comprehensive Metabolic Panel 06/25/19 Range/Units 04:54 Sodium 142 (137-145) mmol/L Potassium 4.1 (3.6-5.0) mmol/L Chloride 101.6 (98-107) mmol/L Carbon Dioxide 23 (22-30) mmol/L BUN 21 H (9-20) mg/dL Creatinine 1.2 (0.8-1.5) mg/dL Glucose 159 H (75-100) mg/dL Calcium 8.4 (8.4-10.2) mg/dL - Imaging and Cardiology EKG: report reviewed, image reviewed Echo: report reviewed ([facility] 05/16/2019 showed EF 60%, impaired relaxation, mild LVH, trace AI and MR. )
--- NOTE | 2019-06-25 11:57 | Nuclear Medicine Report ---
CHEST 1 VIEW INDICATION: elevated d-dimer. COMPARISON: 06/23/2019 FINDINGS: Support devices: None. Heart: Borderline heart size is stable. Lungs/Pleura: Mild improvement in pulmonary venous congestion is demonstrated. The lungs are mildly h yperinflated but clear. No pleural effusion or pneumothorax. Additional findings: None. IMPRESSION: Borderline heart size. Hyperinflated clear lungs. VENTILATION PERFUSION PULMONARY SCINTIGRAPHY HISTORY: Elevated d-dimer, evaluate for pulmonary embolus COMPARISON: 06/25/2019 chest radiograph. TECHNIQUE: Radiopharmaceutical was inhaled. Tc-99m-MAA was then injected. Ventilation and perfusion images were acquired. RADIOPHARMACEUTICAL: 18.5 mCi of Xe-133 inhaled 5.3 mCi of Tc-99m-MAA injected FINDINGS: VENTILATION: No significant air trapping or defect. PERFUSION: No significant segmental or non-segmental defect. Additional Findings: None. IMPRESSION: 1. Low probability for pulmonary embolism. Signer Name: Monster Bardales Jr, MD Signed: 06/25/2019 11:52 AM Workstation Name: [id number]
--- NOTE | 2019-06-25 12:44 | Progress Note ---
Assessment and Plan Assessment and plan: Acute respiratory failure Supplemental oxygen, nebulizer therapy, chest x ray, pulse oximetry, NIPPV as clinically indicated, Elevated d-dimer--check V/Q scan Obesity hypoventilation syndrome Supplemental oxygen, nebulizer therapy, NIPPV as clinically indicated, increased physical activity at discharge, balanced diet. Acute HFpEF Strict I/O, daily weight, diuresis, afterload reduction, supplemental oxygen, pulse oximetry, blood pressure control, thyroid panel, magnesium level. COPD exacerbation Supplemental oxygen, nebulizer therapy, steroid therapy, pulse oximetry, Chronic atrial fibrillation Continue therapeutic anticoagulation, INR, telemetry monitoring, rate control, Anticoagulated on Coumadin/Supratherapeutic INR GERD (gastroesophageal reflux disease) PPI therapy, Accelerated hypertension Monitor BP q shift, supportive care. Diabetes ADA diet, insulin, accu check, hypoglycemia protocol History Interval history: No new issues overnight Hospitalist Physical - Constitutional Vitals: Temp Pulse Resp BP Pulse Ox 98.3 F 90 18 142/58 96 06/25/19 08:13 06/25/19 09:32 06/25/19 08:13 06/25/19 09:32 06/25/19 08:13 General appearance: Present: no acute distress - EENT Eyes: Present: PERRL, EOM intact ENT: hearing intact, clear oral mucosa, dentition normal - Neck Neck: Present: supple, normal ROM - Respiratory Respiratory effort: normal Respiratory: bilateral: CTA - Cardiovascular Rhythm: regular Heart Sounds: Present: S1 & S2. Absent: gallop, rub - Extremities Extremities: no ischemia, No edema, Full ROM - Abdominal General gastrointestinal: soft, non-tender, non-distended, normal bowel sounds - Integumentary Integumentary: Present: clear, warm, dry - Neurologic Neurologic: CNII-XII intact, moves all extremities Results - Labs CBC & Chem 7: 06/25/19 04:54 06/25/19 04:54 Labs: Laboratory Last Values WBC 19.4 K/mm3 (4.5-11.0) H 06/25/19 04:54 RBC 3.92 M/mm3 (3.65-5.03) 06/25/19 04:54 Hgb 10.5 gm/dl (11.8-15.2) L 06/25/19 04:54 Hct 33.1 % (35.5-45.6) L 06/25/19 04:54 MCV 84 fl (84-94) 06/25/19 04:54 MCH 27 pg (28-32) L 06/25/19 04:54 MCHC 32 % (32-34) 06/25/19 04:54 RDW 16.5 % (13.2-15.2) H 06/25/19 04:54 Plt Count 537 K/mm3 (140-440) H 06/25/19 04:54 Lymph % (Auto) 21.1 % (13.4-35.0) 06/23/19 09:43 [place] % (Auto) 8.9 % (0.0-7.3) H 06/23/19 09:43 Eos % (Auto) 1.2 % (0.0-4.3) 06/23/19 09:43 Baso % (Auto) 0.8 % (0.0-1.8) 06/23/19 09:43 Lymph # 2.4 K/mm3 (1.2-5.4) 06/23/19 09:43 [place] # 1.0 K/mm3 (0.0-0.8) H 06/23/19 09:43 Eos # 0.1 K/mm3 (0.0-0.4) 06/23/19 09:43 Baso # 0.1 K/mm3 (0.0-0.1) 06/23/19 09:43 Seg Neutrophils % 68.0 % (40.0-70.0) 06/23/19 09:43 Seg Neutrophils # 7.6 K/mm3 (1.8-7.7) 06/23/19 09:43 PT 45.1 Sec. (12.2-14.9) H 06/25/19 04:54 INR 4.90 (0.87-1.13) H 06/25/19 04:54 APTT 56.4 Sec. (24.2-36.6) H 06/23/19 12:03 1238.14 ng/mlDDU (0-234) H 06/23/19 16:10 Sodium 142 mmol/L (137-145) 06/25/19 04:54 Potassium 4.1 mmol/L (3.6-5.0) 06/25/19 04:54 Chloride 101.6 mmol/L (98-107) 06/25/19 04:54 Carbon Dioxide 23 mmol/L (22-30) 06/25/19 04:54 22 mmol/L 06/25/19 04:54 BUN 21 mg/dL (9-20) H 06/25/19 04:54 1.2 mg/dL (0.8-1.5) 06/25/19 04:54 Estimated GFR > 60 ml/min 06/25/19 04:54 18 % 06/25/19 04:54 Glucose 159 mg/dL (75-100) H 06/25/19 04:54 POC Glucose 166 (70-105) H 06/25/19 08:42 Calcium 8.4 mg/dL (8.4-10.2) 06/25/19 04:54 Magnesium 2.00 mg/dL (1.7-2.3) 06/23/19 16:10 < 0.010 ng/mL (0.00-0.029) 06/23/19 09:43 NT-Pro-B Natriuret Pep 1680 pg/mL (0-900) H 06/23/19 09:43 TSH 0.827 mlU/mL (0.270-4.200) 06/23/19 16:02 Free T4 1.11 ng/dL (0.76-1.46) 06/23/19 16:02 Active Medications - Current Medications Current Medications: Generic Name Dose Route Start Last Admin Trade Name Freq PRN Reason Stop Dose Admin Acetaminophen 650 mg 06/23/19 15:32 Tylenol PO Q4H PRN Pain MILD(1-3)/Fever >100.5/[facility] Albuterol 2.5 mg 06/23/19 15:32 06/25/19 00:18 Proventil IH 2.5 mg Q4HRT PRN Administration Shortness Of Breath Amlodipine Besylate 10 mg 06/24/19 10:00 06/25/19 09:31 Norvasc PO 10 mg DAILY [facility] Administration Aspirin 81 mg 06/24/19 10:00 06/25/19 09:33 Baby Aspirin PO 81 mg DAILY [facility] Administration Famotidine 20 mg 06/24/19 10:00 06/25/19 09:32 Pepcid PO 20 mg QDAY [facility] Administration Furosemide 40 mg 06/24/19 12:00 06/25/19 05:55 Lasix IV 40 mg 0600,1800 [facility] Administration Metoprolol Succinate 100 mg 06/25/19 10:00 06/25/19 09:32 Toprol Xl PO 100 mg QDAY [facility] Administration Ondansetron HCl 4 mg 06/23/19 15:32 Zofran IV Q8H PRN Nausea And Vomiting Paroxetine HCl 40 mg 06/24/19 10:00 06/25/19 09:32 Paxil PO 40 mg DAILY [facility] Administration Potassium Chloride 10 meq 06/24/19 10:00 06/25/19 09:32 K-Dur PO 10 meq QDAY [facility] Administration Sodium Chloride 10 ml 06/23/19 22:00 06/25/19 09:35 Sodium Chloride Flush Syringe 10 Ml IV 10 ml BID [facility] Administration Sodium Chloride 10 ml 06/23/19 15:32 Sodium Chloride Flush Syringe 10 Ml IV PRN PRN LINE FLUSH Tamsulosin HCl 0.4 mg 06/24/19 10:00 06/25/19 09:35 Flomax PO 0.4 mg QDAY [facility] Administration
[2019-06-26] MEDS: LASIX IV SCH (05:25)
[2019-06-26 06:04] LABS: INR 3.45 (0.87-1.13)
[2019-06-26] MEDS: HumuLIN R SUB-Q SCH ×2 (08:30→12:39)
[2019-06-26 08:35] VITALS: BP 126/70
--- NOTE | 2019-06-26 09:07 | Discharge Summary ---
Providers - Providers Date of Admission: 06/23/19 15:32 Date of discharge: 06/26/19 Attending physician: LAMAR CAMPOS 06/24/19 08:35 Consult to Cardiology [CONS] Routine Consulting Provider: CJ HOLLEY Reason For Exam: heart failure Primary care physician: SORAYA STALLWORTH Hospitalization Reason for admission: sob Condition: Stable Hospital course: The pt is a 79 YO male with a past medical history of atrial fibrillation, anticoagulated on Coumadin, CVA, HTN, DM, sleep apnea who presented with c/o progressively worsening SOB and orthopnea for the past several weeks. He also reported some mild BLE edema. He reported he was hospitalized at [facility] 2 weeks ago for the same symptoms and was told that he had heart failure, which is a new diagnosis for him. Per [place] discharge summary from 05/20/2019, pt received treatment for HFpEF, acute respiratory failure. Pt denied any chest pain, palpitations, n/v, diaphoresis, dizziness or syncope. Pt reported compliance with home medications, which includes lasix 40mg daily, lopressor, norvasc, warfarin. Admission INR 3.66. The patient was admitted with diagnosis of acute hypoxic respiratory failure secondary to COPD exacerbation and acute heart failure. Patient also was noted to have elevated d-dimer on admission and underwent VQ scan which revealed low probability for PE. The patient received appropriate IV diuresis, afterload reduction and beta alexsandra with improvement in heart failure back to baseline. Patient also received supplemental oxygen, bronchodilator/nebulizer treatment and steroid therapy for the COPD exacerbation with resolution. The patient returned back to his baseline rest were status and was felt to have received maximal hospital benefit for discharge. Dedicated discharge time 35 minutes. Disposition: [id number] TO HOME OR SELFCARE Time spent for discharge: 35 - Discharge Diagnoses (1) Acute heart failure with preserved ejection fraction Status: Acute (2) Acute respiratory failure Status: Acute Qualifiers: Respiratory failure complication: hypoxia Qualified Code(s): J96.01 - Acute respiratory failure with hypoxia (3) Anemia Status: Acute (4) CHF exacerbation Status: Acute Qualifiers: Heart failure type: systolic Qualified Code(s): I50.23 - Acute on chronic systolic (congestive) heart failure (5) COPD exacerbation Status: Acute (6) HTN (hypertension) Status: Acute Qualifiers: Hypertension type: essential hypertension Qualified Code(s): I10 - Essential (primary) hypertension (7) Obesity hypoventilation syndrome Status: Acute (8) Supratherapeutic INR Status: Acute (9) Anticoagulated on Coumadin Status: Chronic (10) Chronic atrial fibrillation Status: Chronic (11) Diabetes Status: Chronic (12) Sleep apnea Status: Chronic (13) GERD (gastroesophageal reflux disease) Status: Acute Qualifiers: Esophagitis presence: without esophagitis Qualified Code(s): K21.9 - Gastro-esophageal reflux disease without esophagitis Core Measure Documentation - Palliative Care Palliative Care/ Comfort Measures: Not Applicable - Core Measures Any of the following diagnoses?: none Exam - Constitutional Vitals: Temp Pulse Resp BP Pulse Ox 98.0 F 74 18 126/70 96 06/26/19 07:52 06/26/19 07:52 06/26/19 07:52 06/26/19 07:52 06/26/19 07:52 General appearance: Present: no acute distress, well-nourished - EENT Eyes: Present: PERRL ENT: hearing intact, clear oral mucosa - Neck Neck: Present: supple, normal ROM - Respiratory Respiratory effort: normal Respiratory: bilateral: CTA - Cardiovascular Heart Sounds: Present: S1 & S2. Absent: rub, click - Extremities Extremities: pulses symmetrical, No edema Peripheral Pulses: within normal limits - Abdominal General gastrointestinal: Present: soft, non-tender, non-distended, normal bowel sounds Male genitourinary: Present: normal - Integumentary Integumentary: Present: clear, warm, dry - Musculoskeletal Musculoskeletal: gait normal, strength equal bilaterally - Psychiatric Psychiatric: appropriate mood/affect, intact judgment & insight - Neurologic Neurologic: CNII-XII intact, moves all extremities Plan Activity: advance as tolerated Weight Bearing Status: Weight Bear as Tolerated Diet: low fat, low cholesterol, low salt, diabetic Follow up with: SORAYA STALLWORTH JR, MD [Primary Care Provider] - 3-5 Days JUJU DEVINE [Registered Nurse] - 7 Days Forms: Warfarin Discharge Instruction Prescriptions: Aspirin [Aspirin BABY CHEW TAB] 1 tab PO DAILY #30 tab.chew Warfarin Sodium [Coumadin] 5 mg PO QDAY #30 tablet Tamsulosin [Flomax] 0.4 mg PO QDAY #30 capsule Metformin HCl [Glucophage] 1,000 mg PO BID #60 tablet Potassium Chloride [K-Dur] 10 meq PO QDAY #30 tablet Furosemide [Lasix TAB] 40 mg PO QDAY #40 tablet Metoprolol [Lopressor TAB] 100 mg PO QDAY #30 tablet amLODIPine [Norvasc] 10 mg PO DAILY #30 tablet PARoxetine HCl [PARoxetine] 40 mg PO QDAY #30 tablet raNITIdine HCl [Zantac] 300 mg PO QDAY #30 tablet
[2019-06-26] MEDS: FLOMAX PO SCH (09:52)
[2019-06-26] MEDS: BABY ASPIRIN PO SCH (09:52)
[2019-06-26] MEDS: NORVASC PO SCH (09:52)
[2019-06-26] MEDS: TOPROL XL PO SCH (09:53)
[2019-06-26] MEDS: PAXIL PO SCH (09:53)
[2019-06-26] MEDS: PEPCID PO SCH (09:53)
[2019-06-26 11:08] LABS: BUN/Creatinine Ratio 14; Blood Urea Nitrogen 15 mg/dL (9-20); Calcium 8.2 mg/dL (8.4-10.2); Hemolysis Index 1
[2019-06-26] MEDS: K-DUR PO SCH (12:38)
[2019-06-26] MEDS: SODIUM CHLORIDE FLUSH SYRINGE 10 ML IV SCH (12:38)
--- NOTE | 2019-06-26 13:45 | Progress Note ---
Assessment and Plan Patient's cardiac status is stable. INR remains elevated - recommend checking INR level on Friday as outpatient. The patient may be discharged from our perspective. Recommend follow up with primary mapping specialist in 7-10 days . The patient has been seen in conjunction with Dr. Green, who agrees with the assessment and plan. - Patient Problems (1) Accelerated hypertension Current Visit: Yes Status: Acute (2) Acute heart failure with preserved ejection fraction Current Visit: Yes Status: Acute (3) COPD exacerbation Current Visit: Yes Status: Acute (4) Supratherapeutic INR Current Visit: Yes Status: Acute (5) Anticoagulated on Coumadin Current Visit: Yes Status: Chronic (6) Chronic atrial fibrillation Current Visit: Yes Status: Chronic (7) Diabetes Current Visit: Yes Status: Chronic (8) Obesity Current Visit: Yes Status: Chronic Subjective Date of service: 06/26/19 Principal diagnosis: hf Interval history: The patient is lying in bed in [facility]. No complaints. Telemetry reviewed - atrial fibrillation in the 80s. Objective Last Vital Signs Temp 98.0 F 06/26/19 07:52 Pulse 82 06/26/19 09:53 Resp 18 06/26/19 11:57 BP 126/70 06/26/19 09:53 Pulse Ox 96 06/26/19 11:57 - Physical Examination General: No Apparent Distress HEENT: Positive: PERRL, Normocephaly, Mucus Membranes Moist Neck: Positive: neck supple, trachea midline Cardiac: Positive: irregularly irregular Lungs: Positive: Normal Exam Neuro: Positive: Grossly Intact Abdomen: Positive: Unremarkable. Negative: Tender /Rectal: Other (deferred) Skin: Negative: Rash Musculoskeletal: No Pain Extremities: Present: normal - Labs and Meds Coagulation 06/26/19 Range/Units 05:18 PT 34.2 H (12.2-14.9) Sec. INR 3.45 H (0.87-1.13) Comprehensive Metabolic Panel 06/26/19 Range/Units 10:21 Sodium 140 (137-145) mmol/L Potassium 3.9 (3.6-5.0) mmol/L Chloride 99.9 (98-107) mmol/L Carbon Dioxide 27 (22-30) mmol/L BUN 15 (9-20) mg/dL Creatinine 1.1 (0.8-1.5) mg/dL Glucose 130 H (75-100) mg/dL Calcium 8.2 L (8.4-10.2) mg/dL - Imaging and Cardiology EKG: report reviewed, image reviewed Echo: report reviewed ([facility] 05/16/2019 showed EF 60%, impaired relaxation, mild LVH, trace AI and MR. ) - Telemetry EKG Rhythm: Atrial Fibrillation
== END 2019-06-26 14:15 | disposition home or self-care (01) | DRG 291 ==
LOC: ED 09:06 → 4A 15:32
PROVIDERS: ADMIT Internal Medicine; ATTEND Hospitalist
PROC: 4A033R1 Measurement of Arterial Saturation, Peripheral, Percutaneous Approach (ICD-10-PCS; 2019-06-23)
PROC: 3E0234Z Introduction of Serum, Toxoid and Vaccine into Muscle, Percutaneous Approach (ICD-10-PCS; principal; 2019-06-24)
DX: I11.0 Hypertensive heart disease with heart failure (principal); J96.01 Acute respiratory failure with hypoxia; J44.1 Chronic obstructive pulmonary disease with (acute) exacerbation; E66.2 Morbid (severe) obesity with alveolar hypoventilation; Z68.41 Body mass index [BMI] 40.0-44.9, adult; I50.43 Acute on chronic combined systolic (congestive) and diastolic (congestive) heart failure; I48.2 Chronic atrial fibrillation; K21.9 Gastro-esophageal reflux disease without esophagitis; D64.9 Anemia, unspecified; Z86.711 Personal history of pulmonary embolism; Z86.718 Personal history of other venous thrombosis and embolism; Z88.8 Allergy status to other drugs, medicaments and biological substances; Z91.041 Radiographic dye allergy status; Z23 Encounter for immunization; Z86.73 Personal history of transient ischemic attack (TIA), and cerebral infarction without residual deficits; Z79.01 Long term (current) use of anticoagulants; Z83.3 Family history of diabetes mellitus; Z82.49 Family history of ischemic heart disease and other diseases of the circulatory system; Z87.891 Personal history of nicotine dependence; Z79.84 Long term (current) use of oral hypoglycemic drugs; Z79.82 Long term (current) use of aspirin; Z79.899 Other long term (current) drug therapy
CPT/HCPCS: 36415; 36600; 71045; 78582; 80048; 82962; 83735; 83880; 84439; 84443; 84484; 85025; 85027; 85379; 85610; 85730; 87116; 90732; 93005; 93010; 94640; 94644; 94760; 96374; 96375; G0378; A9540; A9558; J1940; J2930

== ENCOUNTER 2019-08-05 11:00 | Outpatient (CLI) | payer MEDICARE | END 2019-08-05 11:01 | disposition home or self-care (01) | LOC: SLR 11:00 | PROVIDERS: ATTEND Otolaryngology | DX: G47.33 Obstructive sleep apnea (adult) (pediatric) (principal); E66.9 Obesity, unspecified; I11.0 Hypertensive heart disease with heart failure; I50.31 Acute diastolic (congestive) heart failure; J44.9 Chronic obstructive pulmonary disease, unspecified; K21.9 Gastro-esophageal reflux disease without esophagitis; I48.20 Chronic atrial fibrillation, unspecified | CPT/HCPCS: 95811 ==